=== PATIENT | female | born 1995 | race Two or more races ===

== ENCOUNTER 2021-02-07 18:11 | Emergency (ER) | payer OTHER ==
[~2021-02-07] VITALS: Ht 154.9 cm; Wt 59.0 kg
[2021-02-07 18:12] VITALS: BP 114/77
== END 2021-02-07 21:46 | disposition home or self-care (01) ==
LOC: ER 18:11
DX: S61.412D Laceration without foreign body of left hand, subsequent encounter (principal); Z88.0 Allergy status to penicillin; X58.XXXD Exposure to other specified factors, subsequent encounter